=== PATIENT | female | born 1980 | race Caucasian/White ===

== ENCOUNTER 2017-10-26 08:11 | Emergency (ER) | payer OTHER ==
[2017-10-26 08:39] VITALS: BP 128/87; PULSE 87; RESP 18; TEMP 98.4
[2017-10-26] MEDS ORDERED: BUPIVACAIN-EPI 0.5%-1:200,000 30 ML VIAL SQ STA (08:47)
--- NOTE | 2017-10-26 08:52 | ED ---
ENT HPI - General Chief complaint: Dental/Oral Stated complaint: Abcess tooth Time Seen by Provider: 10/26/17 08:43 Source: patient, RN notes reviewed Mode of arrival: ambulatory Limitations: no limitations - History of Present Illness Initial comments: This a 37-year-old female presents emergency Department chief complaint of dental pain, facial swelling. Patient states started 3 days ago and has progressively gotten worse. She states that she has missing teeth on her left side and states that she recently bit on her tongue ring. Patient states she feels that she cracked her tooth. Patient has not seen a dentist for this. Patient to for sternal drug ALLERGIES. She has been taking [id number] Tylenol with minimal relief. She admits to some nausea associated with the pain. Patient denies any neck pain, neck swelling or neck stiffness. - Related Data Previous Rx's Medication Instructions Recorded Acetaminophen-Codeine 300-30mg 1 tab PO Q4H PRN #14 tablet 10/26/17 [Tylenol #3] Ibuprofen [Motrin] 600 mg PO Q8HR PRN #30 tab 10/26/17 Ondansetron Odt [Zofran Odt] 4 mg PO Q8HR PRN #10 tab 10/26/17 Penicillin V Potassium [Pen Vee K] 500 mg PO QID #40 tablet 10/26/17 Allergies Allergy/AdvReac Type Severity Reaction Status Date / Time No Known Allergies Allergy Verified 10/26/17 08:56 Review of Systems ROS Statement: Those systems with pertinent positive or pertinent negative responses have been documented in the HPI. ROS Other: All systems not noted in ROS Statement are negative. Past Medical History Past Medical History: No Reported History History of Any Multi-Drug Resistant Organisms: MRSA Date of last positivie culture/infection: 2016 MDRO Source:: arm Past Surgical History: No Surgical Hx Reported Past Psychological History: No Psychological Hx Reported Smoking Status: Current every day smoker Past Alcohol Use History: None Reported Past Drug Use History: None Reported General Exam Limitations: no limitations General appearance: alert, in no apparent distress Head exam: Present: atraumatic, normocephalic, normal inspection Eye exam: Present: normal appearance, PERRL, EOMI. Absent: scleral icterus, conjunctival injection, periorbital swelling ENT exam: Present: mucous membranes moist, TM's normal bilaterally, normal external ear exam. Absent: normal oropharynx (Edentulous, poor dentition is dental fracture left lower no drainable abscess) Neck exam: Present: normal inspection, full ROM. Absent: tenderness, meningismus, lymphadenopathy Respiratory exam: Present: normal lung sounds bilaterally. Absent: respiratory distress, wheezes, rales, rhonchi, stridor Cardiovascular Exam: Present: regular rate, normal rhythm, normal heart sounds. Absent: systolic murmur, diastolic murmur, rubs, gallop, clicks Course Vital Signs 10/26/17 08:37 Temperature 98.4 F Pulse Rate 87 Respiratory 18 Rate Blood Pressure 128/87 O2 Sat by Pulse 100 Oximetry Procedures - Procedures Initial comment: Dental block: Left inferior alveolar block 2 mL as of Marcaine with epinephrine were used to anesthetize left lower patient tolerated well no complications Medical Decision Making - Medical Decision Making 37-year-old female presents for dental pain. Patient did receive a dental block emergency department. Patient will be discharged with penicillin, ibuprofen, Tylenol codeine and Zofran. Return parameters were discussed. Disposition Clinical Impression: Fracture of tooth, Dental infection Disposition: HOME SELF-CARE Condition: Stable Instructions: Toothache (ED) Additional Instructions: Please follow up with the [facility] dental clinic. [facility] [place] [address]. Phone number for new patients or for existing patients. Please return to the Emergency Department if symptoms worsen or any other concerns. Prescriptions: Acetaminophen-Codeine 300-30mg [Tylenol #3] 1 tab PO Q4H PRN #14 tablet PRN Reason: pain Ibuprofen [Motrin] 600 mg PO Q8HR PRN #30 tab PRN Reason: Pain Ondansetron Odt [Zofran Odt] 4 mg PO Q8HR PRN #10 tab PRN Reason: Nausea Penicillin V Potassium [Pen Vee K] 500 mg PO QID #40 tablet Is patient prescribed a controlled substance at d/c from ED?: Yes When asked, does pt state using other controlled substances?: No If prescribed controlled substance>3 days was MAPS reviewed?: Prescribed <3 Days If opioid is for acute pain is fill amount 7 days or less?: Yes If Rx opioid, was Start Talking consent form obtained?: Yes Referrals: Nonstaff,Physician [REFERRING] - 1-2 days Time of Disposition: 08:52
== END 2017-10-26 09:18 | disposition home or self-care (01) ==
LOC: EC 08:11
DX: S02.5XXA Fracture of tooth (traumatic), initial encounter for closed fracture (principal); K04.7 Periapical abscess without sinus; R11.0 Nausea; F17.200 Nicotine dependence, unspecified, uncomplicated; Z86.14 Personal history of Methicillin resistant Staphylococcus aureus infection; X58.XXXA Exposure to other specified factors, initial encounter
CPT/HCPCS: 64400; 99282

== ENCOUNTER 2017-11-09 15:00 | Emergency (ER) | payer OTHER ==
[2017-11-09 15:14] VITALS: BP 109/61; PULSE 70; RESP 17; TEMP 98.1
--- NOTE | 2017-11-09 15:24 | ED ---
ENT HPI - General Chief complaint: Dental/Oral Stated complaint: dental pain/throat swelling Time Seen by Provider: 11/09/17 15:13 Source: patient, RN notes reviewed Mode of arrival: ambulatory Limitations: no limitations - History of Present Illness Initial comments: This is a 37-year-old female who presents to the emergency department with chief complaint of dental pain. Patient states that she was seen here in the beginning of October with the same problem. She states that she was prescribed penicillin VK and finished a course of antibiotics 4 days ago. She states that 2 days ago her pain returned. She states that she has been packing the tooth with [id number] packing. She states that this morning she took an aspirin and felt like her tongue swelled up. She states that she took a Benadryl and the swelling went down. She states that she has been trying to get in to see a dentist, however many dentists do not accept her insurance. She denies any recent fevers or chills. Denies any drainage. Denies any radiation of pain to jaw or neck. Denies chest pain or shortness of breath, abdominal pain, nausea or vomiting. - Related Data Previous Rx's Medication Instructions Recorded Acetaminophen-Codeine 300-30mg 1 tab PO Q4H PRN #14 tablet 10/26/17 [Tylenol #3] Ibuprofen [Motrin] 600 mg PO Q8HR PRN #30 tab 10/26/17 Ondansetron Odt [Zofran Odt] 4 mg PO Q8HR PRN #10 tab 10/26/17 Penicillin V Potassium [Pen Vee K] 500 mg PO QID #40 tablet 10/26/17 Clindamycin [Cleocin] 450 mg PO TID #90 cap 11/09/17 Ibuprofen [Motrin] 600 mg PO Q6HR PRN #20 tab 11/09/17 Allergies Allergy/AdvReac Type Severity Reaction Status Date / Time aspirin AdvReac Swelling Verified 11/09/17 15:14 Review of Systems ROS Statement: Those systems with pertinent positive or pertinent negative responses have been documented in the HPI. ROS Other: All systems not noted in ROS Statement are negative. Past Medical History Past Medical History: No Reported History History of Any Multi-Drug Resistant Organisms: MRSA Date of last positivie culture/infection: 2016 MDRO Source:: arm Past Surgical History: No Surgical Hx Reported Past Psychological History: No Psychological Hx Reported Smoking Status: Current every day smoker Past Alcohol Use History: None Reported Past Drug Use History: None Reported General Exam - General Exam Comments Initial Comments: General: Awake and alert, well-developed; in no apparent distress. HEENT: Head atraumatic, normocephalic. Pupils are equal, round and reactive to light. Extraocular movements intact. Oropharynx moist without erythema or exudate. Poor dentition throughout. Tooth #18 is packed with a white substance. Tenderness on palpation of this tooth. No masses or areas of fluctuance of the gumline. Multiple dental caries. Neck: Supple. Normal ROM. Cardiovascular: Regular rate and rhythm. No murmurs, rubs or gallops. Chest symmetrical. Respiratory: Lungs clear to auscultation bilaterally. No wheezes, rales or rhonchi. Normal respiratory effort with no use of accessory muscles. Musculoskeletal: Normal ROM, no tenderness bilateral upper and lower extremities. Ambulating normally. Skin: [place], warm and dry without rashes or lesions. Neurological: Alert and oriented x3. CN II-XII grossly intact. Speech is fluent and answers are appropriate. No focal neuro deficits. Psychiatric: Normal mood and affect. No overt signs of depression or anxiety noted. Limitations: no limitations Course Vital Signs 11/09/17 15:13 Temperature 98.1 F Pulse Rate 70 Respiratory 17 Rate Blood Pressure 109/61 O2 Sat by Pulse 100 Oximetry Medical Decision Making - Medical Decision Making This is a 37-year-old female who presents to the emergency department with chief complaint of dental pain. Patient recently finished a course of penicillin VK 4 days ago. Denies any fevers or chills. States that her dental pain returned 2 days ago. No masses or areas of fluctuance noted. Vital signs are stable. Patient will be started on clindamycin and given a prescription for Motrin. She'll also be provided with follow-up to [facility] dental clinic. She is in no acute distress and will be discharged home at this time. She is in agreement with plan and voices understanding. All questions answered. Disposition Clinical Impression: Toothache, Dental caries Disposition: HOME SELF-CARE Condition: Good Instructions: Toothache (ED), Dental Caries (ED) Additional Instructions: Please take medications as prescribed. Please follow up with primary care provider within 1-2 days. Return to emergency department if symptoms should worsen or any concerns arise. Please follow up with the [facility]. [address] [place] [address]. Phone number for new patients or for existing patients. Prescriptions: Clindamycin [Cleocin] 450 mg PO TID #90 cap Ibuprofen [Motrin] 600 mg PO Q6HR PRN #20 tab PRN Reason: Pain Is patient prescribed a controlled substance at d/c from ED?: No Referrals: None,Stated [Primary Care Provider] - 1-2 days Time of Disposition: 15:34
== END 2017-11-09 15:53 | disposition home or self-care (01) ==
LOC: EC 15:00
DX: K02.9 Dental caries, unspecified (principal); F17.200 Nicotine dependence, unspecified, uncomplicated; Z88.6 Allergy status to analgesic agent; Z86.14 Personal history of Methicillin resistant Staphylococcus aureus infection
CPT/HCPCS: 99282

== ENCOUNTER 2017-12-11 21:25 | Emergency (ER) | payer OTHER ==
[2017-12-11 21:30] VITALS: BP 130/78; PULSE 85; RESP 18; TEMP 98.9
[2017-12-11 21:55] LABS: Appearance,Urine Turbid (Clear); Bacteria,Urine Rare /hpf; Bilirubin,Urine Negative (Negative); Blood,Urine Moderate (Negative); Color,Urine Yellow; Glucose,Urine (UA) Negative (Negative); Ketones,Urine Negative (Negative); Leukocyte Esterase,Urine Moderate (Negative); Nitrite,Urine Negative (Negative); Protein,Urine Trace (Negative); Specific Gravity,Urine 1.013 (1.001-1.035); Squamous Epithelial Cell,Urine 72 /hpf (0-4); Urobilinogen,Urine <2.0 mg/dL (<2.0); WBC,Urine 12 /hpf (0-5)
--- NOTE | 2017-12-11 22:23 | ED ---
General Adult HPI - General Chief complaint: Abdominal Pain Stated complaint: Abd /Back Pain Time Seen by Provider: 12/11/17 21:50 Source: patient Mode of arrival: ambulatory Limitations: no limitations - History of Present Illness Initial comments: Renetta is a 37-year-old female with a past medical history of known kidney stones who presents the emergency department today for evaluation of left-sided flank pain. Patient reports that she began having intermittent flank pain approximately one month ago. The pain has been intermittent, colicky pain in her left flank radiating to her groin. Pain is similar in character to previous episodes of kidney stones. Patient reports that today the pain has become more severe and is associated with nausea which prompted her to come to the emergency department for evaluation. She denies any fevers, chills, vomiting, chest pain, palpitations. She denies any possibility of . She reports that she has had kidney stones multiple times the past, she has been told that it's likely due to her decreased water intake and excessive energy drink intake. Patient reports that she drink 11 energy drinks throughout the day yesterday. She reports that this is her baseline. He admits she does not drink water. She has previously been evaluated by urology at outside facility, she has required lithotripsy in the past for kidney stones. - Related Data Home Medications Medication Instructions Recorded Confirmed diphenhydrAMINE [Benadryl] 50 mg PO BID PRN 11/09/17 11/09/17 Previous Rx's Medication Instructions Recorded Clindamycin [Cleocin] 450 mg PO TID #90 cap 11/09/17 Ibuprofen [Motrin] 600 mg PO Q6HR PRN #20 tab 11/09/17 Allergies Allergy/AdvReac Type Severity Reaction Status Date / Time aspirin AdvReac Swelling Verified 12/11/17 21:30 Review of Systems ROS Statement: Those systems with pertinent positive or pertinent negative responses have been documented in the HPI. ROS Other: All systems not noted in ROS Statement are negative. Constitutional: Denies: fever, chills ENT: Denies: throat pain Respiratory: Denies: cough, dyspnea Cardiovascular: Denies: chest pain, palpitations Endocrine: Denies: fatigue Gastrointestinal: Reports: abdominal pain. Denies: nausea, vomiting Genitourinary: Reports: urgency, dysuria, frequency, hematuria Musculoskeletal: Reports: back pain Skin: Denies: rash, lesions Neurological: Denies: headache, weakness Hematological/Lymphatic: Denies: easy bleeding, easy bruising Past Medical History Past Medical History: Seizure Disorder Additional Past Medical History / Comment(s): kidney stones, History of Any Multi-Drug Resistant Organisms: MRSA Date of last positivie culture/infection: 2016 MDRO Source:: arm Past Surgical History: Cholecystectomy Additional Past Surgical History / Comment(s): kidney stone removal, Past Psychological History: Depression, Schizophrenia Smoking Status: Current every day smoker Past Alcohol Use History: None Reported Past Drug Use History: None Reported General Exam Limitations: no limitations General appearance: alert, other (Rolling around on the bed, appears uncomfortable) Head exam: Present: atraumatic, normocephalic Eye exam: Present: PERRL ENT exam: Present: normal exam Neck exam: Present: normal inspection Respiratory exam: Absent: respiratory distress Cardiovascular Exam: Present: regular rate, normal rhythm GI/Abdominal exam: Present: soft. Absent: distended Rectal exam: Present: deferred Extremities exam: Present: normal inspection, full ROM Back exam: Present: CVA tenderness (L) Neurological exam: Present: alert, oriented X3 Psychiatric exam: Present: normal mood Skin exam: Present: warm, dry Course Vital Signs 12/11/17 21:26 Temperature 98.9 F Pulse Rate 85 Respiratory 18 Rate Blood Pressure 130/78 O2 Sat by Pulse 99 Oximetry - Reevaluation(s) Reevaluation #1: Urine was negative and Toradol was ordered 12/11/17 22:33 Medical Decision Making - Medical Decision Making The patient was seen and evaluated, history was obtained from the patient. She has a history of recurrent kidney stones has required urologic intervention in the past. Intermittent left flank pain for 1 month worse today. Labs and ultrasound were ordered Urinalysis with gross skin contamination, however there is noted to be hematuria Urine was negative and Toradol was ordered for pain Patient was noted to ask for pain medications multiple times during her visit. I advised the patient that Toradol is the appropriate treatment for kidney stones and we will discuss other management after diagnostics are completed. Labs with no leukocytosis or evidence of acute kidney injury Renal ultrasounds with no evidence of hydronephrosis, hydroureter or obstructing stones. Patient was noted to possibly have a small stone in her right pole of her kidney. Lab and ultrasound results were discussed with the patient. Patient continues to insist that this pain is identical to previous kidney stones. I advised her that we cannot rule out that she may have passed a stone. At this time patient doesn't feel she requires any further workup. The patient remains hemodynamically stable, afebrile. I do feel the patient is stable for discharge home. - Lab Data Result diagrams: 12/11/17 22:48 12/11/17 22:48 Lab Results 12/11/17 12/11/17 12/11/17 Range/Units 21:31 21:31 22:48 WBC (3.8-10.6) k/uL RBC (3.80-5.40) m/uL Hgb (11.4-16.0) gm/dL Hct (34.0-46.0) % MCV (80.0-100.0) fL MCH (25.0-35.0) pg MCHC (31.0-37.0) g/dL RDW (11.5-15.5) % Plt Count (150-450) k/uL Neutrophils % % Lymphocytes % % Monocytes % % Eosinophils % % Basophils % % Neutrophils # (1.3-7.7) k/uL Lymphocytes # (1.0-4.8) k/uL Monocytes # (0-1.0) k/uL Eosinophils # (0-0.7) k/uL Basophils # (0-0.2) k/uL Sodium 140 (137-145) mmol/L Potassium 3.7 (3.5-5.1) mmol/L Chloride 104 (98-107) mmol/L Carbon Dioxide 27 (22-30) mmol/L Anion Gap 9 mmol/L BUN 13 (7-17) mg/dL Creatinine 0.70 (0.52-1.04) mg/dL Est GFR (CKD-EPI)AfAm >90 (>60 ml/min/1.73 sqM) Est GFR (CKD-EPI)NonAf >90 (>60 ml/min/1.73 sqM) Glucose 79 (74-99) mg/dL Calcium 9.5 (8.4-10.2) mg/dL Urine Color Yellow Urine Appearance Turbid H (Clear) Urine pH 6.0 (5.0-8.0) Ur Specific [place] 1.013 (1.001-1.035) Urine Protein Trace H (Negative) Urine Glucose (UA) Negative (Negative) Urine Ketones Negative (Negative) Urine Blood Moderate H (Negative) Urine Nitrite Negative (Negative) Urine Bilirubin Negative (Negative) Urine Urobilinogen <2.0 (<2.0) mg/dL Ur Leukocyte Esterase Moderate H (Negative) Urine WBC 12 H (0-5) /hpf Ur Squamous Epith Cells 72 H (0-4) /hpf Urine Bacteria Rare H (None) /hpf Urine HCG, Qual Not Detected (Not Detectd) 12/11/17 Range/Units 22:48 WBC 14.1 H (3.8-10.6) k/uL RBC 4.38 (3.80-5.40) m/uL Hgb 13.9 (11.4-16.0) gm/dL Hct 41.4 (34.0-46.0) % MCV 94.4 (80.0-100.0) fL MCH 31.8 (25.0-35.0) pg MCHC 33.6 (31.0-37.0) g/dL RDW 14.8 (11.5-15.5) % Plt Count 359 (150-450) k/uL Neutrophils % 49 % Lymphocytes % 41 % Monocytes % 6 % Eosinophils % 2 % Basophils % 0 % Neutrophils # 6.8 (1.3-7.7) k/uL Lymphocytes # 5.8 H (1.0-4.8) k/uL Monocytes # 0.9 (0-1.0) k/uL Eosinophils # 0.3 (0-0.7) k/uL Basophils # 0.0 (0-0.2) k/uL Sodium (137-145) mmol/L Potassium (3.5-5.1) mmol/L Chloride (98-107) mmol/L Carbon Dioxide (22-30) mmol/L Anion Gap mmol/L BUN (7-17) mg/dL Creatinine (0.52-1.04) mg/dL Est GFR (CKD-EPI)AfAm (>60 ml/min/1.73 sqM) Est GFR (CKD-EPI)NonAf (>60 ml/min/1.73 sqM) Glucose (74-99) mg/dL Calcium (8.4-10.2) mg/dL Urine Color Urine Appearance (Clear) Urine pH (5.0-8.0) Ur Specific [place] (1.001-1.035) Urine Protein (Negative) Urine Glucose (UA) (Negative) Urine Ketones (Negative) Urine Blood (Negative) Urine Nitrite (Negative) Urine Bilirubin (Negative) Urine Urobilinogen (<2.0) mg/dL Ur Leukocyte Esterase (Negative) Urine WBC (0-5) /hpf Ur Squamous Epith Cells (0-4) /hpf Urine Bacteria (None) /hpf Urine HCG, Qual (Not Detectd) Disposition Clinical Impression: Flank pain Disposition: HOME SELF-CARE Condition: Good Instructions: Dehydration (ED) Is patient prescribed a controlled substance at d/c from ED?: No Referrals: None,Stated [Primary Care Provider] - 1-2 days Time of Disposition: 00:18
[2017-12-11] MEDS ORDERED: KETOROLAC 30 MG/ML 1 ML VIAL IVP STA (22:25)
[2017-12-11 22:57] LABS: Basophils % (A) 0 %; Eosinophils # (A) 0.3 k/uL (0-0.7); Eosinophils % (A) 2 %; HCT 41.4 % (34.0-46.0); HGB 13.9 gm/dL (11.4-16.0); Lymphocytes # (A) 5.8 k/uL (1.0-4.8); Lymphocytes % (A) 41 %; MCH 31.8 pg (25.0-35.0); MCHC 33.6 g/dL (31.0-37.0); MCV 94.4 fL (80.0-100.0); Mean Platelet Volume 7.3; Monocytes # (A) 0.9 k/uL (0-1.0); Monocytes % (A) 6 %; Neutrophils # (A) 6.8 k/uL (1.3-7.7); Neutrophils % (A) 49 %; Platelet Count 359 k/uL (150-450); RBC 4.38 m/uL (3.80-5.40); RDW 14.8 % (11.5-15.5); WBC 14.1 k/uL (3.8-10.6)
[2017-12-11 23:05] LABS: Anion Gap 9 mmol/L; Blood Urea Nitrogen 13 mg/dL (7-17); Calcium 9.5 mg/dL (8.4-10.2); Carbon Dioxide 27 mmol/L (22-30); Chloride 104 mmol/L (98-107); Glucose 79 mg/dL (74-99); Potassium 3.7 mmol/L (3.5-5.1); Sodium 140 mmol/L (137-145)
--- NOTE | 2017-12-12 00:06 | US ---
EXAMINATION TYPE: US kidneys/renal and bladder DATE OF EXAM: 12/11/2017 COMPARISON: NONE CLINICAL HISTORY: Pain hx stones, left kidney. LLQ pain hx of kidney stones. EXAM MEASUREMENTS: Right Kidney: 11.2 x 4.1 x 4.6 cm Left Kidney: 11.6 x 5.1 x 5.6 cm Right Kidney: 4mm echogenic area seen mid pole. Left Kidney: No hydronephrosis or masses seen Bladder: wnl Bilateral Jets seen: Yes There is no evidence for hydronephrosis at this point in time. No nephrolithiasis is seen. No brandon s are identified. The urinary bladder is anechoic. Bilateral ureteral jets are seen. IMPRESSION: There is possible nonobstructing calculus in the interpolar right kidney. No evidence of renal mass o r obstruction.
== END 2017-12-12 00:29 | disposition home or self-care (01) ==
LOC: EC 21:25
DX: R10.32 Left lower quadrant pain (principal); R11.0 Nausea; F17.200 Nicotine dependence, unspecified, uncomplicated; Z86.14 Personal history of Methicillin resistant Staphylococcus aureus infection; Z90.49 Acquired absence of other specified parts of digestive tract; Z87.442 Personal history of urinary calculi; Z88.6 Allergy status to analgesic agent
CPT/HCPCS: 36415; 80048; 85025; 81001; 81025; 76770; 99284; 96374; J1885